=== PATIENT | female | born 1980 | race Caucasian/White ===

== ENCOUNTER → 2018-04-22 13:25 | Outpatient (CLI) | payer OTHER, SELFPAY ==
--- NOTE | 2018-04-22 13:28 | US_ITS ---
STUDY: SUPERFICIAL ULTRASOUND - RIGHT NECK REASON FOR EXAM: Female, 37 years old. Palpable mass TECHNIQUE: A superficial ultrasound was performed with real-time and static ward-scale imaging. COMPARISON: None. FINDINGS: Ovoid lymph node in the area of concern measuring 1.9 x 1.4 x 0.3 cm. No significant echogenic/fatty hilum. US/Head/Neck Soft Tissue IMPRESSION: Nonspecific lymph node in the area of concern. At this time, biopsy is likely of little benefit. Recommend repeat imaging in 2 months. Electronically Signed: Allen Yeager DO at 11:58 EDT Tel , Service support ,
== END ==
PROVIDERS: Family Provider Family Medicine; PCP Family Medicine; Visit Provider Family Medicine
DX: R22.1 Localized swelling, mass and lump, neck (principal)
CPT/HCPCS: 76536

== ENCOUNTER → 2018-06-25 13:39 | Outpatient (CLI) | payer OTHER, SELFPAY ==
--- NOTE | 2018-06-25 13:43 | BI_ITS ---
MAMMOGRAPHY - BILATERAL SCREENING REASON FOR EXAM: Female, 37 years old. Routine annual screening examination. PERTINENT HISTORY: Grandmother with breast cancer. TECHNIQUE: Digital bilateral breast ivette (3D mammographic acquisition) in the CC and MLO projections. 2-D mediolateral oblique (MLO) and craniocaudad (CC) views of both breasts were obtained. CAD: Full Field Digital Mammography with Computer Added Detection was performed. COMPARISON: None. Baseline examination. FINDINGS: Breast Composition: The breasts are heterogeneously dense, which may obscure small masses. There are no dominant masses or suspicious calcifications. No other significant abnormalities are identified. BI/SCREENING MAMM (CAD), BILAT IMPRESSION: Negative screening mammogram. Yearly followup mammogram recommended. (A) ASSESSMENT CATEGORY: BIRADS Category 1: Negative. A letter regarding these results will be sent to the patient by the facility within 30 days. Approximately 10% of breast cancers are not detected by mammography. A normal mammogram should not delay biopsy of a clinically suspicious abnormality. [id number] Electronically Signed: Hubert Barrios MD at 9:54 EST Tel [phone], Service support ,
--- NOTE | 2018-06-25 13:44 | US_ITS ---
STUDY: SUPERFICIAL ULTRASOUND - RIGHT SIDE OF THE NECK. REASON FOR EXAM: Female, 37 years old. History of enlarged right cervical lymph node. TECHNIQUE: A superficial ultrasound was performed with real-time and static ward-scale imaging. COMPARISON: Comparison is made with prior study dated April 22, 2018. FINDINGS: There is a 1.7 cm x 0.7 cm x 0.3 cm benign-appearing lymph node. This has decreased in size as compared to prior study. US/Head/Neck Soft Tissue IMPRESSION: The previously seen benign-appearing lymph node is decreased in size. Electronically Signed: Hubert Barrios MD at 15:29 EST Tel [phone], Service support ,
== END ==
PROVIDERS: Family Provider Family Medicine; PCP Family Medicine; Referring Provider Family Medicine; Visit Provider Family Medicine
DX: Z12.31 Encounter for screening mammogram for malignant neoplasm of breast (principal); R59.0 Localized enlarged lymph nodes
CPT/HCPCS: 76536; 77063; 77067

== ENCOUNTER → 2018-11-25 | Outpatient (CLI) | payer OTHER, SELFPAY ==
--- NOTE | 2018-11-25 16:12 | RAD_ITS ---
STUDY: X-RAY - LUMBAR SPINE REASON FOR EXAM: Female, 38 years old. Radiating low back pain TECHNIQUE: 5 view(s) of the lumbar spine were obtained. COMPARISON: None FINDINGS: Normal lumbar lordosis. There is no substantial scoliosis. There is a normal alignment of the vertebrae. Normal vertebral bodies and endplates. Normal disc space heights, except for mild narrowing at L5/S1. IUD noted projecting over the lower coccyx Punctate calcifications overlying both renal shadows RAD/L/S Spine Min 4 Views IMPRESSION: Mild disc space narrowing at L5/S1, otherwise unremarkable lumbar spine Bilateral punctate calcifications overlying both renal shadows Electronically Signed: Leroy Clemons MD at 8:27 EDT , Service support ,
== END | disposition home or self-care (01) ==
PROVIDERS: Family Provider Family Medicine; PCP Family Medicine; Referring Provider Family Medicine; Visit Provider Family Medicine
DX: M54.31 Sciatica, right side (principal)
CPT/HCPCS: 72110

== ENCOUNTER 2018-12-22 17:00 | Outpatient (RCR) | payer OTHER, SELFPAY ==
--- NOTE | 2018-12-03 10:04 | HP.PTEVAL_ITS ---
Patient's Visit Information MARELY GRUBBS is a 38 year old F referred to Physical Therapy by Arabella Barajas DO with a diagnosis of lesion of sciatic nerve R leg. Date of Evaluation: 12/03/18 Physical Therapist: YANNA Resendiz - Visit Plan Frequency: 2-3x /Week Duration: 6 Weeks Plan: Give nerve root stretches next visit if pt is improving..... 1-3X/ week for 4-6 weeks for centralization of symptoms (most likly extension), nerve root stretches, postural exercies, core stability, with HEP. - Subjective Findings: Pt reports that she started in Aug and Sep with LBP and it went away. Now she has R buttock pain down the back of the L and calf and tingling into foot. She does stretch and it helps. Recently it has been more constant. 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 It does wake her up occ and some nights are better than others. No difference with stairs. She has more pain when getting up after sitting. Walking for long periods of time ease her pain unless she walks too long. A day at work when she is up and walking around are her best days. - Pain back pain Pain Intensity (Out of 10): 0 R buttock pain Pain Intensity (Out of 10): 5 - Objective Gait: Slightly decreased stance time on the R. Trunk AROM: flexion 75%, ext 25%, SB 75% B, Rot L 75% (painful) and Rot R 100%. LE MMT: hip flex B 4/5, R Knee ext 2-/5 ( increased pain in buttock... + SLUMP) and L knee ext 4/5, B knee flex 4/5, B hip abd 4/5. Pt is able to heel and toe raise. + SLR on the R. Patellar DTR's: 2+/3 B. Prone lying: R buttock and down to the R leg pain and after lying X 5 min she still had about the same pain. Prone lying to MARIO plus X 10.... still in same area but maybe lessoned some. Prone lying to MARIO plus X 10.... Prone press up 1 X 10... decreased pain when lying prone. Prone press up 1 X 10.... center of back pain and no leg pain. Prone press ups with pt sag ( hold X 2 seconds) X 10.....center of back pain and no leg pain. Prone press ups with pt sag ( hold X 2 seconds) X 10.... pain back into the R leg - Goals Goal 1:: I Hep Goal Time Frame: 2 Weeks Goal 2:: Centralize back pain Goal Time Frame: 4-6 Weeks Goal 3:: Sit with upright posture during treatment sessions Goal Time Frame: 4-6 Weeks - Rehabilitation Potential Rehabilitation Potential: Good - Anticipated Interventions Patient/Client Instruction: Educate patient on: Condition, Plan of Care For the Purpose of:: To decrease pain, To increase ROM, To improve nutrient delivery to tissue, To improve muscle performance and motor function, To improve ability to perform ADL's, To increase tolerance to activity/condition/position, To improve performance and independence with ADL's, To improve health of tissue, To decrease soft tissue restriction, To increase flexibility/ROM Therapeutic Exercise to Include: Strength training, Postural training, Flexibilty training, Gait and locomotor training, Neuromotor development, Passive ROM, Active ROM, Dynamic Lumbar Stabilization, Deven Exercises For the Purpose of:: To decrease pain, To increase ROM, To improve nutrient delivery to tissue, To improve muscle performance and motor function, To improve ability to perform ADL's, To increase tolerance to activity/condition/position, To decrease level of supervision to perform tasks, To improve ability of physical actions for home/community/work/leisure, To improve gait and locomotor functions, To improve health of tissue, To increase flexibility/ROM Manual Therapy Techniques to Include: Mobilization For the Purpose of:: To decrease pain, To improve nutrient delivery to tissue, To improve muscle performance and motor function, To improve ability to perform ADL's IF ES: Yes Cryotherapy (ice pack, ice massage): Yes Thermo therapy (hot pack): Yes Ultrasound (thermal/non thermal): Yes For the Purpose of:: To decrease pain, To increase ROM, To improve nutrient delivery to tissue Thank you for the opportunity to evaluate your patient. For Medicare and Medicare HMO plans, please review the plan of care and approve it. It will need to be FAXED BACK to us at [phone] for Medicare purposes. For Medicare only, by signing this I certify the plan of care. Please let me know if there are questions or concerns regarding this plan of care. Physician Signature: Date:
--- NOTE | 2019-02-01 13:08 | HP.PT.NRP ---
HP - Discharge Summary (1) - Patient Information MARELY GRUBBS was seen in my office for initial evaluation on 12/03/18. The following Plan of Care was established for this patient: Initial Frequency: 2-3x /Week Initial Duration: 6 Weeks - Anticipated Interventions Patient/Client Instruction: Educate patient on: Condition, Plan of Care For the Purpose of:: To decrease pain, To increase ROM, To improve nutrient delivery to tissue, To improve muscle performance and motor function, To improve ability to perform ADL's, To increase tolerance to activity/condition/position, To improve performance and independence with ADL's, To improve health of tissue, To decrease soft tissue restriction, To increase flexibility/ROM Therapeutic Exercise to Include: Strength training, Postural training, Flexibilty training, Gait and locomotor training, Neuromotor development, Passive ROM, Active ROM, Dynamic Lumbar Stabilization, Deven Exercises For the Purpose of:: To decrease pain, To increase ROM, To improve nutrient delivery to tissue, To improve muscle performance and motor function, To improve ability to perform ADL's, To increase tolerance to activity/condition/position, To decrease level of supervision to perform tasks, To improve ability of physical actions for home/community/work/leisure, To improve gait and locomotor functions, To improve health of tissue, To increase flexibility/ROM Manual Therapy Techniques to Include: Mobilization For the Purpose of:: To decrease pain, To improve nutrient delivery to tissue, To improve muscle performance and motor function, To improve ability to perform ADL's IF ES: Yes Cryotherapy (ice pack, ice massage): Yes Thermo therapy (hot pack): Yes Ultrasound (thermal/non thermal): Yes For the Purpose of:: To decrease pain, To increase ROM, To improve nutrient delivery to tissue This patient was last seen in our office 12/22/18. Pertinent comments regarding their Physical therapy will appear below: DC PT as pt had surgery At this point I will be discontinuing this patient from physical therapy. I would be happy to see this patient again in the future if found appropriate by the physician. Thank you! Alexus Christian, MPT
== END 2018-12-22 19:00 | disposition home or self-care (01) ==
LOC: PT 17:00
PROVIDERS: Family Provider Family Medicine; PCP Family Medicine; Referring Provider Family Medicine; Visit Provider Family Medicine
DX: G57.01 Lesion of sciatic nerve, right lower limb (principal)
CPT/HCPCS: 97014; 97110; 97161; G0283

== ENCOUNTER → 2018-12-24 | Outpatient (CLI) | payer OTHER, SELFPAY ==
--- NOTE | 2018-12-24 16:55 | MRI_ITS ---
HISTORY: Low back pain with worsening numbness and decreased sensation in the right leg and right foot. Worsening over 3-4 months. Also pain radiating to the right buttock and thigh. EXAM/TECHNIQUE: MR Spine Lumbar W/O Contrast: 1.5 Brittanie. Multiplanar, multisequence. COMPARISON: Lumbar spine radiographs 11/25/18. FINDINGS: # of images incl. paperwork: 121 No fracture or acute signal changes in the vertebrae. Alignment anatomic. Conus terminates at the level of the mid L1 vertebral body with normal contour and signal. Thecal sac terminates at the level of S3-4. Disc desiccation and height loss and endplate degenerative changes at L5-S1. Otherwise the discs and endplates have normal signal. No acute or concerning findings in the paraspinal soft tissues. At L1-2 and L2-3 there are no significant degenerative changes. At L3-4 and L4-5, mild bilateral facet degeneration causes no significant narrowing. At L5-S1, a right paracentral disc extrusion with inferior migration displaces posteriorly and compresses the traversing right S1 nerve root in the subarticular zone. MRI/Spine Lumbar (Routine) IMPRESSION: At L5-S1, a right paracentral disc extrusion with inferior migration displaces posteriorly and compresses the traversing right S1 nerve root in the subarticular zone. This is probably the etiology of the patient's symptoms. Endplate degenerative signal changes at L5-S1. at 2239 Reported and signed by: Dash Nelson MD Electronically Signed: Dash Nelson, at 22:38 EDT Tel , Service support ,
== END | disposition home or self-care (01) ==
LOC: MRI 16:57
PROVIDERS: Family Provider Family Medicine; PCP Family Medicine; Referring Provider Family Medicine; Visit Provider Family Medicine
DX: M54.17 Radiculopathy, lumbosacral region (principal)
CPT/HCPCS: 72148

== ENCOUNTER 2019-03-09 17:30 | Outpatient (RCR) | payer OTHER, SELFPAY ==
--- NOTE | 2019-02-01 17:49 | HP.PTEVAL_ITS ---
Patient's Visit Information MARELY GRUBBS is a 38 year old F referred to Physical Therapy by Nahed Nix with a diagnosis of HNP and DDD of L-spine. Date of Evaluation: 02/01/19 Physical Therapist: YANNA Resendiz - Visit Plan Frequency: 2x /Week Duration: 6 Weeks Plan: On February 10 we are able to progress ROM as tolerated per order. 2X/ week for core stability, functional strength, stretching of nerver root and of R gastroc with HEP. - Subjective Findings: Surgery was 01-07-2019. Went to Dr Fredrick Ramirez on a and he immed. admitted her to [facility] and had surgery the next morning. Her current symotoms: pain is R calf (tightness) and R buttock and sharp pain if lifts leg up or in the morning. She has posterior numbness under her R buttock. She is sleeping ok. She notices no real weakness and is now able to lift her toes up no problem. Restrictions at this point is no bending, lifting more than 10# or twisting. She has a brace and in the last 2 days she has been trying to go without it.... she puts it on if she is up for long periods of time. She does not go back to MD unless issues and RTW is Mar 07. - Pain back pain Pain Intensity (Out of 10): 0 leg pain Pain Intensity (Out of 10): 0 buttock pain Pain Intensity (Out of 10): 0 - Objective Gait: Walks with a normal gait pattern. Tight nerve root on the R with Slump test and SLR test. + SLR test on the R. LE MMT: B hip flex 4/5, knee flex B 4/5, knee ext 4/5, hip abd 4/5, able to do a full bridge. Patellar DTR's R 1+/3 and L 2+/3. Trunk AROM: flex 25%, ext 15%, SB 75% B. Tight R gastroc - Goals Goal 1:: I HEP Goal Time Frame: 4-6 Weeks Goal 2:: Increase trunk AROM to full ROM without pain Goal Time Frame: 4-6 Weeks Goal 3:: Demonstrate proper body mechanics with lifting Goal Time Frame: 4-6 Weeks Goal 4:: Be able to do a SLUMP test with no pain Goal Time Frame: 6-8 Weeks - Rehabilitation Potential Rehabilitation Potential: Good - Anticipated Interventions Patient/Client Instruction: Educate patient on: Condition, Plan of Care For the Purpose of:: To decrease pain, To increase ROM, To improve nutrient delivery to tissue, To improve muscle performance and motor function, To improve ability to perform ADL's, To increase tolerance to activity/condition/position, To improve performance and independence with ADL's, To improve ability of physical actions for home/community/work/leisure, To improve health of tissue, To increase flexibility/ROM Therapeutic Exercise to Include: Strength training, Postural training, Flexibilty training, Active ROM, Dynamic Lumbar Stabilization For the Purpose of:: To decrease pain, To increase ROM, To improve nutrient delivery to tissue, To improve muscle performance and motor function, To increase tolerance to activity/condition/position, To improve performance and independence with ADL's, To improve ability of physical actions for home/community/work/leisure, To improve health of tissue, To decrease soft tissue restriction, To increase flexibility/ROM IF ES: Yes Cryotherapy (ice pack, ice massage): Yes Thermo therapy (hot pack): Yes For the Purpose of:: To decrease pain, To decrease swelling/inflammation Thank you for the opportunity to evaluate your patient. For Medicare and Medicare HMO plans, please review the plan of care and approve it. It will need to be FAXED BACK to us at [phone] for Medicare purposes. For Medicare only, by signing this I certify the plan of care. Please let me know if there are questions or concerns regarding this plan of care. Physician Signature: Date:
--- NOTE | 2019-03-09 18:08 | HP.PTDCSUM ---
HP - PT D/C Summary It has been my pleasure to treat MARELY GRUBBS under orders from Nahed Nix, for the diagnosis of HNP and DDD of L-spine for a total of 9 visit(s). Discharge Date: 03/09/19 Please see the following information for a summary of their discharge status. - Subjective Subjective: PT went back to work the last 2 days and she has no pain. Everyone is commenting on her posture. - Pain back pain Pain Intensity (Out of 10): 0 leg pain Pain Intensity (Out of 10): 0 buttock pain Pain Intensity (Out of 10): 0 - Overall Improvement % Improvement: 95 - Objective Objective/Function: Trunk flexion 75% (tight around incision), ext 75% ( some discomfort at end range), SB B 100%. -SLUMP test. Normal gait. Demonstrates knowledge of lifting with her knees bent and bring objects close to her. Excellent posture. Discussed continue core stability and start some flex with knees bent only. No running until at least 4-5 months and possibly start with eliptical first. Demonstrated eccentric step downs on 6 inch for HEP - Goals Goal 1:: I HEP Goal Progress: Goal Met Goal 2:: Increase trunk AROM to full ROM without pain Goal Progress: Progressing Goal 3:: Demonstrate proper body mechanics with lifting Goal Progress: Goal Met Goal 4:: Be able to do a SLUMP test with no pain Goal Progress: Goal Met - Plan Plan: DC PT to HEP - D/C Information Discharge Comments: DC PT If there are questions or concerns regarding this patient's physical therapy, please feel free to call me at [phone]. Thank you for the referral of this patient. Sincerely, Alexus Christian, MPT
== END 2019-03-09 19:00 | disposition home or self-care (01) ==
LOC: PT 17:30
PROVIDERS: Family Provider Family Medicine; PCP Family Medicine; Referring Provider Nurse Practitioner Acute Care
DX: M51.27 Other intervertebral disc displacement, lumbosacral region (principal); M51.36 Other intervertebral disc degeneration, lumbar region
CPT/HCPCS: 97110; 97161; 97530